=== PATIENT | male | born 1995 | race African-American/Black ===

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

== ENCOUNTER 2017-10-30 08:54 | Emergency (ER) | payer MEDICAID ==
[~2017-10-30] VITALS: Ht 193 cm; Wt 97.5 kg
[~2017-10-30 08:54] MED LIST changes: +CYCLOBENZAPRINE10 MG ORAL
[2017-10-30 09:12] VITALS: BP 148/81
--- NOTE | 2017-10-30 09:42 | Emergency Room Report ---
History of Present Illness General Chief Complaint: Upper Extremity Injury Source: Patient Present Illness HPI Patient present with complaints of right thenar eminence discomfort He reports that yesterday he was smacking down at a basketball when the area hit another player's elbow He has pain in that region Pain is worse with movement of his thumb Denies any elbow pain denies any other numbness or tingling Allergies: Coded Allergies: PEANUT (Verified Allergy, Unknown, 04/04/16) Patient History Past Medical History: see triage record Pertinent Family History: none Reviewed Nursing Documentation: PMH: Agreed; PSxH: Agreed Nursing Documentation-PMH Past Medical History: No History, Except For Hx Asthma: Yes Review of Systems All Other Systems: negative except mentioned in HPI Physical Exam Vital Signs Date Time Temp Pulse Resp B/P (MAP) Pulse Ox O2 Delivery O2 Flow Rate FiO2 10/30/17 09:02 98.1 57 15 148/81 98 Room Air 98.1 Sp02 EP Interpretation: reviewed, normal General Appearance: well appearing, no apparent distress Head: normocephalic, atraumatic Eyes: bilateral eye PERRL, bilateral eye EOMI ENT: hearing grossly normal, normal pharynx, TMs + canals normal, uvula midline Neck: supple, no bony tend Musculoskeletal: other - Some tenderness reproduce on palpation of the mid point of the thenar eminence on the right hand, no obvious ecchymosis, able to make a thumbs up and approximate however with pain sensory is intact Neurologic: alert, oriented x3 Skin: no rash Procedures Splinting Splinting : Consent: Verbal Location: Right hand Pre-Made Type: velcro Splint: thumb spica Pre-Proc Neuro Vasc Exam: normal Post-Proc Neuro Vasc Exam: normal Patient Tolerated: Well Complications: None Medical Decision Making Diagnostic Impression: Primary Impression: Hand contusion Additional Impression: Sprain, finger ER Course Given the patient's history exam and findings x-ray imaging was obtained X-rays are negative at this time Given the patient's discomfort thumb spica splint was applied I cannot palpate much discomfort at the scaphoid region However the patient's discomfort in the thenar eminence requires close follow- up and patient stable for initial conservative outpatient treatment Other X-Ray Diagnostic Results Other X-Ray Diagnostic Results : X-Ray ordered: Right hand # of Views/Limited Vs Complete: 3 View Indication: Pain EP Interpretation: Yes Interpretation: no dislocation, no soft tissue swelling, no fractures Impression: No acute disease Electronically Signed by: Estela Hannah DO Last Vital Signs Date Time Temp Pulse Resp B/P (MAP) Pulse Ox O2 Delivery O2 Flow Rate FiO2 10/30/17 09:12 98.1 15 148/81 98 Room Air 98.1 10/30/17 09:02 57 Status: improved Disposition: HOME, SELF-CARE Condition: Improved Scripts Ibuprofen* (MOTRIN*) 600 Mg Tablet 600 MG ORAL Q8H PRN for For Pain, #20 TAB 0 Refills Prov: Estela Hannah DO 10/30/17 Referrals: NOT CHOSEN IPA/MD,REFERRING (PCP) Additional Instructions: Patient is provided with the discharge instructions notified to follow up with primary doctor in the next 2-3 days otherwise return to the er with any worsening symptoms. Please note that this report is being documented using DRAGON technology. This can lead to erroneous entry secondary to incorrect interpretation by the dictating instrument. Estela Hannah DO Oct 30, 2017 09:42
--- NOTE | 2017-10-30 10:20 | Diagnostic Imaging Report ---
Indication: Pain, patient jammed index finger Technique: 3 views right hand Comparison: 03/09/2015 Findings: No acute fractures. No dislocations. The joint spaces are preserved. Impression: Negative
[2017-10-30] MEDS ORDERED: IBUPROFEN600 MG ORAL (10:31)
[2017-10-30 10:37] VITALS: BP 137/80
== END 2017-10-30 10:37 | disposition home or self-care (01) ==
LOC: EMR 09:10
DX: S63.601A Unspecified sprain of right thumb, initial encounter (principal); S60.221A Contusion of right hand, initial encounter; M79.644 Pain in right finger(s); W51.XXXA Accidental striking against or bumped into by another person, initial encounter; Y93.67 Activity, basketball; Y99.9 Unspecified external cause status
CPT/HCPCS: 99283

== ENCOUNTER 2018-04-10 10:42 | Emergency (ER) | payer MEDICAID, OTHER ==
[~2018-04-10] VITALS: Ht 182.9 cm; Wt 99.8 kg
[2018-04-10 10:53] VITALS: BP 138/77
[2018-04-10] MEDS ORDERED: ALBUTEROL2.5 MG/3 M INH (10:53)
[2018-04-10] MEDS ORDERED: ALBUTEROL SULF8.5 GM INH (11:45)
[2018-04-10] MEDS ORDERED: [UNRECOGNIZED DRUG - SUPPLY] (11:47)
[2018-04-10 11:50] VITALS: BP 130/75
--- NOTE | 2018-04-11 10:07 | Emergency Room Report ---
History of Present Illness General Chief Complaint: General Complaint Source: Patient Present Illness HPI Patient is a 22-year-old male who presented after increased discomfort in both feet. Patient reports having primarily increased right-sided foot pain. Patient stated this had worsened after he stopped using orthotics. Patient prior history of flat feet. He reports having a prior history of asthma. He denies any acute injuries. Patient states he has been having increased symptoms since increased standing at work. Allergies: Coded Allergies: PEANUT (Verified Allergy, Unknown, 04/04/16) Patient History Past Medical History: see triage record Reviewed Nursing Documentation: PMH: Agreed; PSxH: Agreed Nursing Documentation-PM Past Medical History: No History, Except For Hx Asthma: Yes Review of Systems All Other Systems: negative except mentioned in HPI Physical Exam Vital Signs Date Time Temp Pulse Resp B/P (MAP) Pulse Ox O2 Delivery O2 Flow Rate FiO2 04/10/18 10:49 98.4 77 18 138/77 98 Room Air General Appearance: well appearing, no apparent distress, alert, GCS 15 Head: normocephalic, atraumatic ENT: hearing grossly normal, normal voice Neck: full range of motion, supple Respiratory: no respiratory distress, speaking full sentences Cardiovascular #1: normal peripheral pulses, no edema Gastrointestinal: normal inspection Musculoskeletal: no calf tenderness, other - Bilateral flat feet without evidence of erythema or swelling Neurologic: normal gait Psychiatric: mood/affect normal Skin: no rash Medical Decision Making Diagnostic Impression: Primary Impression: Flat feet, bilateral Additional Impressions: Asthma Encounter for generalized patient complaints ER Course Patient presented for foot pain. Differential diagnosis include was not limited to fracture, arthritis, gout among others. Patient has a benign exam and does not appear to require any further imaging or laboratory testing at this time. Patient appears to have chronic foot pain related to flat feet. Patient does not appear to require pain medication at this time. He was given prescription for orthotic as well as for refill of his asthma medications. patient is advised to seekl primary care. Last Vital Signs Date Time Temp Pulse Resp B/P (MAP) Pulse Ox O2 Delivery O2 Flow Rate FiO2 04/10/18 11:50 98.2 78 20 130/75 97 Room Air Status: improved Disposition: HOME, SELF-CARE Condition: Stable Scripts [orthopedic insoles] No Conflict Check for flat feet, #2 Prov: Zaid Rice MD 04/10/18 Albuterol Sulfate* (ALBUTEROL SULFATE MDI*) 8.5 Gm Hfa.aer.ad 2 PUFF INH Q4H PRN for cough/wheezing, #1 EA 0 Refills Prov: Zaid Rice MD 04/10/18 Patient Instructions: Prachi Edmond, Asthma Attack Prevention Zaid Rice MD Apr 11, 2018 10:07
== END 2018-04-10 11:51 | disposition home or self-care (01) ==
LOC: EMR 11:25
DX: M21.41 Flat foot [pes planus] (acquired), right foot (principal); M21.42 Flat foot [pes planus] (acquired), left foot; J45.909 Unspecified asthma, uncomplicated; Z91.010 Allergy to peanuts
CPT/HCPCS: 99281

== ENCOUNTER 2018-05-28 00:04 | Emergency (ER) | payer OTHER ==
[~2018-05-28] VITALS: Ht 190.5 cm; Wt 97.5 kg
[~2018-05-28 00:04] MED LIST changes: +ALBUTEROL SULF8.5 GM INH; +ALBUTEROL2.5 MG/3 M INH; +[UNRECOGNIZED DRUG - SUPPLY]
[2018-05-28 00:16] VITALS: BP 132/64
--- NOTE | 2018-05-28 00:16 | NUR ---
ED Nurse Note: Pt arrived ED from home. C/o skin rashes and hives with unknown reason today. Pt is A/O X4. Temp 101.4 F at this time, waiting for orders.
--- NOTE | 2018-05-28 00:28 | NUR ---
ED Nurse Note: Meds given as ordered.
[2018-05-28] MEDS ORDERED: BENADRYL25 MG ORAL (00:33)
[2018-05-28] MEDS ORDERED: MEDROL DOSEPAK4 MG ORAL (00:33)
[2018-05-28] MEDS ORDERED: ALBUTEROL2.5 MG/3 M HHN (00:36)
[2018-05-28 00:40] VITALS: BP 128/61
--- NOTE | 2018-05-28 00:40 | NUR ---
ER DISCHARGE NOTE: Patient is cleared to be discharged per Dr. Hannah. Pt is A/O x 4 on room air with stable vital signs. Pt was given D/C and prescription instructions and was able to verbalize understanding. Pt ID band removed. Pt is able to ambulate with steady gait and took all belongings. Accompanied by his family.
--- NOTE | 2018-05-28 02:32 | Emergency Room Report ---
History of Present Illness General Chief Complaint: Skin Rash/Abscess Source: Patient Present Illness HPI Patient present with complete is a rash that started last night Ports that he initially side on his legs and upper arm Some of the areas have already started to improve however continued rash with some areas of the upper arm are still there denies any chest pain or shortness of breath Patient reports that he had some [place] food yesterday with question of possible peanut contact Denies any vomiting or diarrhea denies any neck pain or photophobia Allergies: Coded Allergies: PEANUT (Verified Allergy, Unknown, 04/04/16) Patient History Past Medical History: see triage record Pertinent Family History: none Reviewed Nursing Documentation: PMH: Agreed; PSxH: Agreed Nursing Documentation-PMH Past Medical History: No History, Except For Hx Asthma: Yes Review of Systems All Other Systems: negative except mentioned in HPI Physical Exam Vital Signs Date Time Temp Pulse Resp B/P (MAP) Pulse Ox O2 Delivery O2 Flow Rate FiO2 05/28/18 00:10 101.1 83 18 136/68 97 Room Air Sp02 EP Interpretation: reviewed, normal General Appearance: well appearing, no apparent distress Head: normocephalic, atraumatic Eyes: bilateral eye PERRL, bilateral eye EOMI ENT: hearing grossly normal, normal pharynx, TMs + canals normal, uvula midline Neck: full range of motion, supple, no meningismus, no bony tend Respiratory: lungs clear, normal breath sounds, no rhonchi, no respiratory distress, no retraction, no accessory muscle use Cardiovascular #1: normal peripheral pulses, regular rate, rhythm, no edema, no gallop, no JVD, no murmur Gastrointestinal: normal bowel sounds, non tender, soft, no mass, no organomegaly, non-distended, no guarding, no hernia, no pulsatile mass, no rebound Musculoskeletal: normal inspection Neurologic: oriented x3, responsive, frame repairer III-XII nml as tested, motor strength/ tone normal, sensory intact Psychiatric: mood/affect normal Skin: warm/dry, palpation normal, other - Urticaria mainly bilateral upper arm Lymphatic: normal inspection, no adenopathy Medical Decision Making Diagnostic Impression: Primary Impression: urticaria Additional Impression: allergic reaction ER Course Given the patient's history and presentation the rash appears to be indicative of likely allergic reaction Patient's airway and respirations remained clear After acute intervention patient stable for continued close outpatient follow-up Last Vital Signs Date Time Temp Pulse Resp B/P (MAP) Pulse Ox O2 Delivery O2 Flow Rate FiO2 05/28/18 00:10 101.1 83 18 136/68 97 Room Air Status: improved Disposition: HOME, SELF-CARE Condition: Improved Scripts Albuterol Sulfate* (ALBUTEROL SULFATE HHN*) 2.5 Mg/3 Ml Vial.neb 2.5 MG HHN Q4H PRN for Shortness of Breath, #25 VIAL Prov: Estela Hannah DO 05/28/18 Diphenhydramine Hcl* (BENADRYL*) 25 Mg Capsule 25 MG ORAL Q6H PRN for Itching for 5 Days, CAP Prov: Estela Hannah DO 05/28/18 Methylprednisolone (Methylprednisolone*) 4MG Dspk 4 MG ORAL DIRECTED for 6 Days, #21 EA 0 Refills Day 1: Two tablets before breakfast, one after lunch, one after dinner, and two at bedtime. If started late in the day, take all six tablets at once or divide into two or three doses, unless otherwise directed by prescriber. Day 2: One tablet before breakfast, one after lunch, one after dinner, and two at bedtime Day 3: One tablet before breakfast, one after lunch, one after dinner, and one at bedtime Day 4: One tablet before breakfast, one after lunch, and one at bedtime Day 5: One tablet before breakfast and one at bedtime Day 6: One tablet before breakfast Prov: Estela Hannah DO 05/28/18 Referrals: Mariama CONNELL,REFERRING (PCP) Patient Instructions: Rash, Hives, [id number] Additional Instructions: Patient is provided with the discharge instructions notified to follow up with primary doctor in the next 2-3 days otherwise return to the er with any worsening symptoms. Please note that this report is being documented using DRAGON technology. This can lead to erroneous entry secondary to incorrect interpretation by the dictating instrument. Estela Hannah DO May 28, 2018 02:32
== END 2018-05-28 00:40 | disposition home or self-care (01) ==
LOC: EMR 00:24
DX: L50.0 Allergic urticaria (principal); Z91.010 Allergy to peanuts; J45.909 Unspecified asthma, uncomplicated
CPT/HCPCS: 99283; J7512

== ENCOUNTER 2018-09-10 23:34 | Emergency (ER) | payer SELFPAY ==
[~2018-09-10] VITALS: Ht 193 cm; Wt 101.2 kg
[~2018-09-10 23:34] MED LIST changes: +ALBUTEROL2.5 MG/3 M HHN; +BENADRYL25 MG ORAL; +MEDROL DOSEPAK4 MG ORAL
[2018-09-10 23:50] VITALS: BP 137/81
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
[2018-09-11] MEDS ORDERED: IBUPROFEN600 MG ORAL (00:13)
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
[2018-09-11 00:30] VITALS: BP 137/81
--- NOTE | 2018-09-11 00:30 | NUR ---
ER Nurse Note: Pt seen, treated, medically cleared for discharge by ERMD. Discharge instuctions given with repeat verbalization by pt. Emphasized to follow up with primay care provider. All orders completed per ERMD orders. Pt a&ox4, VSS, no signs of distress. ID band removed. All questions answered per pt's questions. Pt left with all belongings, left with own transportation; left with steady gait.
[2018-09-11] MEDS ORDERED: ALBUTEROL SULF8.5 GM INH (00:31)
== END 2018-09-11 00:30 | disposition home or self-care (01) ==
LOC: EMR 23:49
DX: R51 Headache (principal); V43.52XA Car driver injured in collision with other type car in traffic accident, initial encounter; Y92.410 Unspecified street and highway as the place of occurrence of the external cause; Z91.010 Allergy to peanuts
CPT/HCPCS: 70450; 99284

== ENCOUNTER 2019-06-30 10:54 | Emergency (ER) | payer OTHER ==
[~2019-06-30] VITALS: Ht 195.6 cm; Wt 99.3 kg
[2019-06-30 11:09] VITALS: BP 142/84
--- NOTE | 2019-06-30 11:23 | Emergency Room Report ---
History of Present Illness General Chief Complaint: Head Injury Source: Patient Present Illness HPI Disclaimer: Please note that this report is being documented using [employer] technology. This can lead to erroneous entry secondary to incorrect interpretation by the dictating instrument. HPI: 23-year-old male presents for evaluation 1 day after head injury. The patient bent over to pick something up and hit his forehead against the corner of a wall yesterday. There was no loss of consciousness but he states he was confused for approximately 2 to 5 seconds. He denied seizure, loss of consciousness, changes in his vision, coordination, strength or sensation. Denies nausea or vomiting, difficulty with memory or difficulty performing tasks. Denies neck or back pain or injury. He reported some photosensitivity today but denied any changes in his vision. Has been using Tylenol and Motrin at home with improvement. Does not take blood thinners. No other changes in his health reported. PMH: Denies PSH: Denies Allergies: Denies medication allergies. Social Hx: Denies drug or alcohol abuse Allergies: Coded Allergies: PEANUT (Verified Allergy, Unknown, 04/04/16) COVID-19 Screening Contact w/high risk pt: No Recent Travel to affected area: No Experienced COVID-19 symptoms?: No COVID-19 Testing performed MEDICAL LABORATORY TECHNICIAN: No Nursing Documentation-PMH Past Medical History: No History, Except For Hx Asthma: Yes Review of Systems All Other Systems: negative except mentioned in HPI Physical Exam Vital Signs Date Time Temp Pulse Resp B/P (MAP) Pulse Ox O2 Delivery O2 Flow Rate FiO2 06/30/19 11:01 98.1 60 18 149/87 (107) 97 Room Air General: Awake and alert, no acute distress HEENT: Normocephalic, atraumatic. There are no scalp or face hematomas, lacerations or abrasions. No tenderness or soft tissue swelling over the facial bones. EOMI. PERRLA. No septal hematoma. No hemotympanum. No oral lacerations. Dentition is intact. No malocclusion Neck: Supple, trachea midline. Arrives without cervical collar Resp: Normal work of breathing. Skin: Intact. No abrasions, laceration or rash over the exposed skin MSK: Normal tone and bulk. No obvious deformity. Moving all extremities. Ambulating without difficulty. Neuro: Awake and alert. Mentating appropriately. Sensation is intact to light touch over the dermatomes of the upper and lower extremities Spine: There is no tenderness, step-off or deformity in the cervical spine. Medical Decision Making Diagnostic Impression: Primary Impression: Head injury, closed, without LOC ER Course 23-year-old male presents for evaluation of headache and photosensitivity 1 day after a head injury without loss of consciousness. He is well-appearing, stable vital signs and intact neurologic exam. No physical exam findings of significant trauma. Likely, he has a minor concussion and should improve over the next few days to weeks. Little concern for significant intracranial injury at this time. Low risk by [place] head CT criteria. No evidence of significant neck trauma. Do not believe he requires emergent imaging at this time. He will continue NSAID therapy and keep out of contact sports. Recommended limiting screen time and following up with his PMD. Discussed reasons to return to the emergency department. He understands and agrees with the treatment plan. Last Vital Signs Date Time Temp Pulse Resp B/P (MAP) Pulse Ox O2 Delivery O2 Flow Rate FiO2 06/30/19 11:09 98.1 84 18 142/84 98 Room Air Disposition: HOME, SELF-CARE Condition: Stable Departure Forms: Return to Work Return to Work Date: July 01, 2019 Patient Instructions: Concussion, Adult Additional Instructions: Do not participate in any contact sports until your symptoms have resolved and then discussed with your doctor when you can return to full activity. Limit screen time as much as possible. Continue using Tylenol Motrin as needed for headache. If you experience a sudden severe headache, changes in your balance or coordination, significant changes in mental status, experience a seizure, persistent vomiting or any other sudden changes in your health return to the emergency department for reevaluation. Clovis Lau MD June 30, 2019 11:23
[2019-06-30 11:25] VITALS: BP 147/81
== END 2019-06-30 11:25 | disposition home or self-care (01) ==
LOC: EMR 11:15
DX: S09.90XA Unspecified injury of head, initial encounter (principal); J45.909 Unspecified asthma, uncomplicated; W22.8XXA Striking against or struck by other objects, initial encounter; Y93.89 Activity, other specified; Y92.9 Unspecified place or not applicable; Z91.010 Allergy to peanuts
CPT/HCPCS: 99282

== ENCOUNTER 2019-07-01 11:10 | Emergency (ER) | payer OTHER ==
[~2019-07-01] VITALS: Ht 195.6 cm; Wt 99.8 kg
--- NOTE | 2019-07-01 11:21 | NUR ---
ED Nurse Note: Pt drove self to ER c/o of right later head pain x 2 days. per pt "I was bending over and when i got up i hit the corner of the door entrance". pt reports pain 5/10 when palpating affected area. area appears intact and dry. no swelling, bruising, bleeding, and abnormalties. pt denies vomiting and losing consciousness. pt does report "sleepy spells" since day of occurence. Addendum: 07/01/19 at 1130 by PDELEON D Nurse Note: Pt drove self to ER c/o of right lateral head pain x 2 days. per pt "I was bending over and when i got up i hit the corner of the door entrance". pt reports pain 5/10 when palpating affected area. area appears intact and dry. no swelling, bruising, bleeding, and abnormalties. pt denies vomiting and losing consciousness. pt does report "sleepy spells" since day of occurence.
[2019-07-01 11:23] VITALS: BP 133/75
--- NOTE | 2019-07-01 11:25 | NUR ---
ED Nurse Note: pt reports light senstivity, lights dimmed for pt comfort.
--- NOTE | 2019-07-01 11:30 | NUR ---
ED Nurse Note: ERMD at bedside and offered pt motrin or tylenol. pt reports taking tylenol at 1000 today and refuses pain medication at this time.
--- NOTE | 2019-07-01 11:34 | Emergency Room Report ---
History of Present Illness General Chief Complaint: Headache Source: Patient Present Illness HPI This patient states that 2 days ago he hit his head very hard on the edge of a cabinet. He states that he was stunned for about a minute but did not have loss of consciousness. States that he also at that time could not remember what happened. He states that intermittently he has had headache. He states he also has some light sensitivity. He states he has felt sleepier than usual. He denies weakness. He denies tingling or numbness. He denies blurry vision. He denies nausea or vomiting. He has no other complaints. Allergies: Coded Allergies: PEANUT (Verified Allergy, Unknown, 04/04/16) COVID-19 Screening Contact w/high risk pt: No Recent Travel to affected area: No Experienced COVID-19 symptoms?: No COVID-19 Testing performed SKATES OPERATOR: No Patient History Past Medical History: see triage record, asthma Past Surgical History: none Pertinent Family History: none Social History: Denies: smoking, alcohol use, drug use Reviewed Nursing Documentation: PMH: Agreed; PSxH: Agreed Nursing Documentation-PMH Past Medical History: No History, Except For Hx Asthma: Yes Review of Systems All Other Systems: negative except mentioned in HPI Physical Exam Vital Signs Date Time Temp Pulse Resp B/P (MAP) Pulse Ox O2 Delivery O2 Flow Rate FiO2 07/01/19 11:14 97.9 53 16 133/75 (94) 98 Room Air Sp02 EP Interpretation: reviewed, normal General Appearance: no apparent distress, alert, GCS 15, non-toxic Head: normocephalic, other - Healed abrasion on mid forehead. Eyes: bilateral eye normal inspection, bilateral eye PERRL ENT: hearing grossly normal, normal pharynx, no angioedema, normal voice Neck: normal inspection, full range of motion, supple/symm/no masses Respiratory: no respiratory distress, no retraction, no accessory muscle use, speaking full sentences Rectal: deferred Musculoskeletal: back normal, normal range of motion, gait/station normal, non- tender Neurologic: alert, motor strength/tone normal, oriented x3, sensory intact, responsive, speech normal Psychiatric: judgement/insight normal, memory normal, mood/affect normal, no suicidal/homicidal ideation Skin: no rash, normal color Medical Decision Making Diagnostic Impression: Primary Impression: Post concussion syndrome ER Course This patient has a clinical presentation consistent with minor head injury. Given the ongoing symptoms, I did go ahead and obtain a CT of the head. This was unremarkable. This patient is otherwise healthy and is not on any anticoagulation. The mechanism was minor therefore I do not feel this patient needs further head imaging or LP. Overall, this patient is well-appearing and nontoxic. The patient was given close return precautions and followup instructions. CT/MRI/US Diagnostic Results CT/MRI/US Diagnostic Results : Imaging Test Ordered: CT head Impression No acute findings. Specifically no intracranial bleed, mass effect or edema. See official report. Last Vital Signs Date Time Temp Pulse Resp B/P (MAP) Pulse Ox O2 Delivery O2 Flow Rate FiO2 07/01/19 11:23 97.9 53 16 133/75 98 Room Air Status: improved Disposition: HOME, SELF-CARE Condition: Improved Aicha Armas DO July 01, 2019 11:34
--- NOTE | 2019-07-01 11:34 | NUR ---
ED Nurse Note: PT taken to Ct on wheel chair with land surveyor
--- NOTE | 2019-07-01 11:44 | NUR ---
ED Nurse Note: Pt returned from CT
--- NOTE | 2019-07-01 12:55 | NUR ---
ER DISCHARGE NOTE: Patient is cleared to be discharged per ERMD, pt is aox4, on room air, with stable vital signs. pt was given dc instructions, pt was able to verbalize understanding, pt id band removed. pt is able to ambulate with steady gait. pt took all belongings.
[2019-07-01 12:56] VITALS: BP 127/72
--- NOTE | 2019-07-01 14:30 | Diagnostic Imaging Report ---
EXAM: CT CT Head no Contrast INDICATION: Trauma with head pain. TECHNIQUE: Axial images of the brain were obtained with subsequent sagittal and coronal reformats. All CT scans at this facility are performed using dose modulation techniques as appropriate to a performed exam including the following: automated exposure control with adjustment of the mA and/or kV according to patient size. COMPARISON STUDY: None. RADIATION DOSE: CTDIvol: 53.4 mGy DLP: 1045.5 mGy-cm Dose information generated by the CT scanner is available in PACS. FINDINGS: There is normal symmetry and normal conley-white differentiation. There is no acute large territory cortical infarct, hemorrhage, mass effect or shift. Ventricles and cisterns as well as brainstem and posterior fossa appear unremarkable. The sellar region is normal. Sinuses, mastoid air cells and bony calvarium appear intact. IMPRESSION: NO ACUTE INTRACRANIAL ABNORMALITY.
== END 2019-07-01 12:55 | disposition home or self-care (01) ==
LOC: EMR 11:55
DX: F07.81 Postconcussional syndrome (principal); Z91.010 Allergy to peanuts
CPT/HCPCS: 70450; Z7502; 99284

== ENCOUNTER 2019-07-05 10:01 | Emergency (ER) | payer OTHER ==
[~2019-07-05] VITALS: Ht 195.6 cm; Wt 99.8 kg
[2019-07-05 10:14] VITALS: BP 135/95
--- NOTE | 2019-07-05 10:20 | NUR ---
ED Nurse Note: patient walked into ED from home due to headache on the right temporal side 06/25. patient denies any vomiting, nausea, diarrhea, or any other complaints. patient reports he had "concussion" episode about 1 week ago, patient was seen in ED on 06/30/19 and 07/01/19 and reports he came here to day because he was told to comeback for a follow up care. patient is alert awake x4 ambulatory steady gait, breathing unlabored and even, speaking in full sentences.
[2019-07-05] MEDS ORDERED: IBUPROFEN600 M1 ORAL (11:03)
[2019-07-05 11:14] VITALS: BP 135/95
--- NOTE | 2019-07-05 11:15 | NUR ---
ER DISCHARGE NOTE: Patient is cleared to be discharged per ERMD DR Mcgowan, pt is aox4, on room air, with stable vital signs. pt was given dc and prescription instructions, pt was able to verbalize understanding, pt id band removed without complications. pt is able to ambulate with steady gait. pt took all belongings.
--- NOTE | 2019-07-05 11:20 | Emergency Room Report ---
History of Present Illness General Chief Complaint: Headache Source: Patient Present Illness HPI 24-year-old male presents to ED for evaluation. States that he was seen here last Fl[place] after he hit his head. Was told he has a concussion. Returned the next day as his symptoms were persisting and had a CT which was negative. Is here for reevaluation. States he still has pain to the right church. Throbbing , 5 out of 10, nonradiating. Notes light sensitivity. Denies nausea or vomiting. Denies blurry vision. Denies neck stiffness. No other aggravating relieving factors. Denies any other associated symptoms Allergies: Coded Allergies: PEANUT (Verified Allergy, Unknown, 04/04/16) COVID-19 Screening Contact w/high risk pt: No Recent Travel to affected area: No Experienced COVID-19 symptoms?: No COVID-19 Testing performed CAKE WASHER: No Patient History Past Medical History: asthma Past Surgical History: none Pertinent Family History: none Social History: Denies: smoking, alcohol use, drug use Immunizations: UTD Reviewed Nursing Documentation: PMH: Agreed; PSxH: Agreed Nursing Documentation-PMH Past Medical History: No History, Except For Hx Asthma: Yes Review of Systems All Other Systems: negative except mentioned in HPI Physical Exam Vital Signs Date Time Temp Pulse Resp B/P (MAP) Pulse Ox O2 Delivery O2 Flow Rate FiO2 07/05/19 10:14 98.2 68 16 135/95 (108) 95 Room Air Sp02 EP Interpretation: reviewed, normal General Appearance: no apparent distress, alert, GCS 15, non-toxic Head: normocephalic, atraumatic Eyes: bilateral eye normal inspection, bilateral eye PERRL ENT: hearing grossly normal, normal pharynx, no angioedema, normal voice Neck: full range of motion, supple/symm/no masses Respiratory: chest non-tender, lungs clear, normal breath sounds, speaking full sentences Cardiovascular #1: regular rate, rhythm, no edema Cardiovascular #2: 2+ carotid (R), 2+ carotid (L), 2+ radial (R), 2+ radial (L) , 2+ dorsalis pedis (R), 2+ dorsalis pedis (L) Gastrointestinal: normal bowel sounds, non tender, soft, non-distended, no guarding, no rebound Rectal: deferred Genitourinary: normal inspection, no CVA tenderness Musculoskeletal: back normal, normal range of motion, gait/station normal, non- tender Neurologic: alert, motor strength/tone normal, oriented x3, sensory intact, responsive, speech normal Psychiatric: judgement/insight normal, memory normal, mood/affect normal, no suicidal/homicidal ideation Reflexes: 3+ bicep (R), 3+ bicep (L), 3+ tricep (R), 3+ tricep (L), 3+ knee (R) , 3+ knee (L) Lymphatic: no adenopathy Medical Decision Making Diagnostic Impression: Primary Impression: Post concussive syndrome ER Course Hospital Course 24-year-old male presents with headache after head injury last week. Differential diagnoses include: tension headache, migraine, dehydration, intracranial bleed Clinical course Patient placed on stretcher. After initial history, physical exam reveals male in no acute distress. No focal deficits. Cranial nerves II through XII intact. Visual acuity intact. I reviewed EMR. Patient had CT which was negative. Discussed findings with patient. Reassurance given. Discussed symptoms of a concussion can last for several weeks and can include headaches light sensitivity etc. 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 Recommend modification of duty with a few days off. Safe for discharge for close outpatient follow-up i. I feel this is a highly complex case requiring extensive working including EKG/Rhythm strip, Xray/CT/US, Blood/urine lab work, repeat exams while in ED, and administration of strong opiates/narcotics for pain control, admission to hospital or close patient follow up. Diagnosis - postconcussive syndrome stable and discharged to home with Rx Motrin. f/up with PMD. return to ED if symptoms recur/worsen. Last Vital Signs Date Time Temp Pulse Resp B/P (MAP) Pulse Ox O2 Delivery O2 Flow Rate FiO2 07/05/19 11:14 98.2 68 16 135/95 95 Room Air Status: improved Disposition: HOME, SELF-CARE Condition: Stable Scripts Ibuprofen* (MOTRIN*) 600 Mg Tablet 600 MG ORAL Q8H PRN for FOR PAIN, #30 TAB 0 Refills Prov: Aric Mcgowan MD 07/05/19 Departure Forms: Return to Work Return to Work Date: July 07, 2019 Other Restrictions: please limit your screen time as much as possible Work Restrictions: No Heavy Lifting Patient Instructions: Post-Concussion Syndrome, [id number] Aric Mcgowan MD July 05, 2019 11:20
== END 2019-07-05 11:10 | disposition home or self-care (01) ==
LOC: EMR 10:25
DX: F07.81 Postconcussional syndrome (principal); Z91.010 Allergy to peanuts
CPT/HCPCS: 99282